=== PATIENT | female | born 1985 | race Caucasian/White ===

== ENCOUNTER 2019-06-30 16:45 | Observation (INO) ==
[2019-06-30] MEDS ORDERED: Naloxone 0.4 MG/ML INJ IVP PRN (20:18)
[2019-06-30] MEDS ORDERED: *HR* Dextrose 50 % in Water (Syg) 50 ML SYRINGE IVP PRN (21:13)
[2019-06-30] MEDS ORDERED: D5% in Water 1,000 ML IVC PRN (21:13)
[2019-06-30] MEDS ORDERED: Dextrose Gel 15 GM/37.5 ML TUBE PO PRN ×2 (21:13)
[2019-06-30] MEDS ORDERED: predniSONE 20 MG TABLET PO ONE (21:13)
[2019-06-30] MEDS ORDERED: Insulin LISPRO 300 UNITS/3 ML VIAL SQ SCH (21:15)
[2019-06-30] MEDS: Insulin LISPRO 300 UNITS/3 ML VIAL SQ SCH (21:24)
[2019-06-30] MEDS ORDERED: Ondansetron 4 MG/2 ML VIAL IVP PRN (22:08)
[2019-06-30] MEDS ORDERED: Acetaminophen 325 MG TABLET PO PRN (22:08)
[2019-06-30] MEDS ORDERED: 0.9 % Sodium Chloride 1,000 ML IVC SCH (22:15)
[2019-07-01 02:12] LABS: Hematocrit 43.1 % (35.3-44.9); Hemoglobin 14.7 g/dL (11.5-15.4); Mean Corpuscular HGB Conc 34.1 g/dL (31.6-35.5); Mean Corpuscular Hemoglobin 30.6 pg (28.0-33.3); Mean Corpuscular Volume 89.6 fL (83.0-100.0); Platelet Count 323 K/mcL (140-400); Red Blood Count 4.81 M/mcL (3.82-4.97); Red Cell Distribution Width 12.9 % (11.5-14.5); White Blood Count 11.3 K/mcL (4.3-11.1)
[2019-07-01 02:16] LABS: INR 1.1; Prothrombin Time 12.1 Seconds (9.4-12.1)
[2019-07-01 02:32] LABS: BUN/Creatinine Ratio 15 (6-26); Blood Urea Nitrogen 17 mg/dL (6-20); Calcium 9.3 mg/dL (8.6-10.3); Carbon Dioxide 22 mEq/L (23-29); Chloride 105 mEq/L (98-107); Cholesterol 149 mg/dL (< 200); Glucose 122 mg/dL (70-105); HDL Cholesterol 37 mg/dL (40-59); LDL Cholesterol,Calculated 92 mg/dL (0-99); Magnesium 1.9 mg/dL (1.6-2.6); Osmolality,Calculated 283 (280-300); Potassium 4.3 mEq/L (3.5-5.1); Sodium 135 mEq/L (136-145); Triglycerides 99 mg/dL (< 150); eGFR For African Americans > 60 (> 60); eGFR For Non-African Americans 54 (> 60)
[2019-07-01] MEDS: Insulin LISPRO 300 UNITS/3 ML VIAL SQ SCH ×2 (08:45→12:22)
[2019-07-01] MEDS ORDERED: predniSONE 20 MG TABLET PO ONE (11:21)
[2019-07-01 11:26] LABS: Estimated Average Glucose 103 mg/dl
[2019-07-01 11:49] VITALS: BP 136/90
== END 2019-07-01 13:25 | disposition home or self-care (01) ==
LOC: 3BNU
PROVIDERS: ADMIT Family Medicine; ATTEND Family Medicine